=== PATIENT | male | born 1990 | race Caucasian/White ===

== ENCOUNTER 2017-04-27 10:28 | Inpatient (IN) ==
[2017-04-27 11:30] LABS: HEMATOCRIT 22.8 % (42.0-52.0); HEMOGLOBIN 7.5 g/dL (14.0-18.0); MANUAL DIFF NEEDED? YES; MCH 30.7 PG (27-31); MCHC 32.9 g/dL (33-37); MCV 93.4 FL (81-99); MPV 10.6 FL (7.4-10.4); PLT 108 X1000 (130-400); RBC 2.44 XMIL (4.7-6.1)
[2017-04-27 12:10] LABS: BANDS 17 % (0-1); EOS 3 % (1-10); LYMPHS 1 % (21-51)
[2017-04-27] MEDS ORDERED: CYTARABINE IV STA (13:26)
[2017-04-27] MEDS ORDERED: GLEEVEC 400 MG PO SCH (13:26)
[2017-04-27] MEDS ORDERED: HYDREA PO ONE (13:27)
--- NOTE | 2017-04-27 14:15 | Diag Imaging Result Doc PS360 ---
EXAM: CHEST-1 VIEW HISTORY: CML crisis TECHNIQUE: AP portable upright at 1410 COMMENT: There is no evidence of acute cardiac or pulmonary disease. No previous studies are available for comparison. IMPRESSION: No acute disease. Electronically signed by Herbert Hurst 04/27/2017 2:12 PM
[2017-04-27 14:46] LABS: URINE CULTURE NEEDED? NO; URINE SOURCE CLEAN CATCH
[2017-04-27 15:19] LABS: BILIRUBIN URINE NEGATIVE (NEGATIVE); BLOOD URINE NEGATIVE (NEGATIVE); COLOR YELLOW; GLUCOSE URINE NEGATIVE (NEGATIVE); LEUKOCYTES URINE NEGATIVE (NEGATIVE); NITRITE URINE NEGATIVE (NEGATIVE); PH URINE 5.5; PROTEIN URINE 50 mg/dL (NEGATIVE); SP GRAVITY URINE 1.016; TURBIDITY URINE HAZY (CLEAR); UROBILINOGEN URINE NORMAL (NORMAL)
[2017-04-27 15:20] LABS: URINE MICRO REVIEW NEEDED? YES
[2017-04-27 15:27] LABS: UR EPITHELIAL CELLS <10 /HPF (<10); URINE BACTERIA NEGATIVE /HPF; URINE RBC <10 /HPF (<10); URINE WBC <10 /HPF (<10)
[2017-04-27 15:29] LABS: URINE CASTS GRANULAR PRESENT
[2017-04-27 15:29] LABS: AGAP 12; ALBUMIN 4.4 g/dL (3.5-5.0); ALKALINE PHOSPHATASE 86 U/L (32-122); BUN 17 mg/dL (8-22); CALCIUM 8.5 mg/dL (8.8-10.2); CHLORIDE 102 mmol/L (98-107); COSMO 278; GOT 38 U/L (10-34); GPT 14 U/L (10-44); POTASSIUM 3.4 mmol/L (3.5-5.1); SODIUM 139 mmol/L (136-145); TCO2 25 mmol/L (25-35); TOTAL BILIRUBIN 0.67 mg/dL (0.20-1.00); TOTAL PROTEIN 8.2 g/dL (6.3-8.3)
[2017-04-27 15:47] LABS: INR 1.19; PROTIME 12.6 Seconds (9.2-11.7); PTT 36.1 Seconds (22.0-36.0)
[2017-04-27] MEDS ORDERED: NORCO-5 PO ONE (17:08)
[2017-04-27] MEDS ORDERED: NORCO-5 ONE (17:09)
[2017-04-27] MEDS ORDERED: ZOFRAN IV PRN ×2 (17:46→22:31)
[2017-04-27] MEDS ORDERED: NS 0 ML ONE (17:47)
[2017-04-27] MEDS ORDERED: NON-FORMULARY MED 1 EACH in NS 250 ML IV ONE (18:00)
--- NOTE | 2017-04-27 18:12 | HISTORY AND PHYSICAL ---
HISTORY: This is a 27-year-old who is from [place]. 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 He reports that really 2 weeks ago he started noticing fatigue and last week he has had frontal headaches. He noticed this last week as well lymph nodes on his chin, lower extremities, one on the right hip. He has a history of CML. He is followed at the [facility] in [place], I believe. He was diagnosed in 2011. Been in contact with his oncologist. They would like to admit and see if we can give him some treatment. He denies fever, chills, change in bowels. He can appreciate a little bit of splenomegaly, but the main thing has been fatigue, the lymph nodes in the lower extremity in his frontal headache. OTHER PAST MEDICAL HISTORY: Pretty unremarkable. He has had a right eye injury in the past. PAST SURGICAL HISTORY: No surgical history. SOCIAL HISTORY: Negative for alcohol or tobacco. No illicit drugs. FAMILY HISTORY: He comes from a large family. Family history of diabetes in his father. Otherwise pretty unremarkable. REVIEW OF SYSTEMS: Denies fever or chills.HEENT: He has a headache. No change in his vision reported or hearing acuity. Neck: Denies any stiffness. No history of thyroid disorder. Respiratory: No increased work of breathing or dyspnea. No orthopnea or paroxysmal nocturnal dyspnea. Cardiovascular: He denies any chest pain or palpitations. No complaints of squeezing- type chest discomfort. GI/: No change in his urination. No gross hematuria or dysuria. No change in bowels. PHYSICAL EXAMINATION: VITAL SIGNS: Temperature 97.8 degrees, pulse 86, respirations 20, blood pressure 103/56. EYES: Pupils are equal, round. LUNGS: Clear in all lung alves. CARDIOVASCULAR: Regular rhythm and rate without murmur or S3. ABDOMEN: Soft. He has splenomegaly. Spleen edge is below the umbilicus. EXTREMITIES: In his lower extremities he has 1-2 cm tender nodules that are consistent with lymph nodes. Do not appreciate adenopathy in the popliteal, in the femoral, supraclavicular, cervical or axillary. He has a lymph node below the deltoid he has had for a while. LAB: White count 523,000, his hematocrit is 22, his hemoglobin 7.5, MCV is 93, platelet count 108,000. Chemistry: Sodium 139, potassium 3.4, chloride 102, bicarb 25, BUN 17, creatinine 1.2, calcium 8.5, AST 38, ALT 14, alkaline phosphatase 86, albumin 4.4. ProTime is 12.6 with an INR 1.19, PTT was 36. Urinalysis unremarkable. Chest x-ray: No acute disease. NOTE: Dr. Mark in the ER had discussed with Dr. Cunningham at [facility] and Dr. Cunningham's cell phone number is [phone]. This is [facility] in [place]. We reported that he had presented with a white blood cell count of [id number]. In the past few years each time associated with poor compliance apparently with Gleevec regimen and none unassociated with blast crisis. Dr. Cunningham recommended admission here and we will get a differential count to reveal blast. He thinks he will probably get reasonable white blood cell count 3 to 5 days. We will treat him with hydroxyurea 5 g p.o. daily, cytarabine 1 g/m2 IV 1 dose and Gleevec 400 mg p.o. daily. Give him some IV fluids and check his counts in the morning. cc: Chintan Whitehead MD
[2017-04-27] MEDS ORDERED: NORCO-10 PO PRN (18:32)
[2017-04-27] MEDS: NS 1,000 ML IV SCH (18:45)
[2017-04-27] MEDS: NORCO-10 PO PRN (18:46)
[2017-04-27] MEDS ORDERED: MORPHINE IV ONE (22:10)
[2017-04-27] MEDS: COMPAZINE IV PRN (22:31)
[2017-04-28] MEDS: NORCO-10 PO PRN (00:08)
[2017-04-28] MEDS: MORPHINE IV PRN ×5 (05:28→23:41)
[2017-04-28 05:52] LABS: INR 1.41; PROTIME 15.1 Seconds (9.2-11.7); PTT 36.1 Seconds (22.0-36.0)
[2017-04-28 06:05] LABS: AGAP 14; ALBUMIN 3.9 g/dL (3.5-5.0); ALKALINE PHOSPHATASE 74 U/L (32-122); BUN 32 mg/dL (8-22); CALCIUM 7.9 mg/dL (8.8-10.2); CHLORIDE 103 mmol/L (98-107); COSMO 284; GOT 67 U/L (10-34); GPT 9 U/L (10-44); MAGNESIUM 2.5 mg/dL (1.5-2.7); POTASSIUM 4.2 mmol/L (3.5-5.1); SODIUM 139 mmol/L (136-145); TCO2 22 mmol/L (25-35); TOTAL PROTEIN 7.3 g/dL (6.3-8.3)
[2017-04-28] MEDS: NS 1,000 ML IV SCH (06:28)
[2017-04-28 06:34] LABS: HEMATOCRIT 21.7 % (42.0-52.0); MANUAL DIFF NEEDED? YES; MCH 29.7 PG (27-31); MCHC 32.3 g/dL (33-37); MCV 91.9 FL (81-99); MPV 10.1 FL (7.4-10.4); PLT 93 X1000 (130-400); RBC 2.36 XMIL (4.7-6.1)
--- NOTE | 2017-04-28 06:47 | EKG Report ---
Test Performed on : 04/27/2017 11:47:13 PM Test Reason : CHEST PAIN Blood Pressure : / mmHG Vent. Rate : 085 BPM Atrial Rate : 085 BPM P-R Int : 158 ms QRS Dur : 094 ms QT Int : 382 ms P-R-T Axes : 150 -24 148 degrees QTc Int : 454 ms Unusual P axis, possible ectopic atrial rhythm. Low voltage QRS Nonspecific T wave abnormality Abnormal ECG No previous ECGs available Confirmed by Fernando Loaiza MD ([id number]) on 04/30/2017 12:56:21 PM
[2017-04-28 07:34] LABS: BANDS 7 % (0-1); EOS 5 % (1-10); MONO 1 % (1-9); NRBC 2 % (0-0)
[2017-04-28] MEDS: LOVENOX SUBQ SCH (08:30)
[2017-04-28] MEDS: COMPAZINE IV PRN (08:31)
[2017-04-28] MEDS ORDERED: IMATINIB MESYLATE 400 MG PO SCH (09:00)
[2017-04-28] MEDS ORDERED: COMPAZINE ONE (09:18)
[2017-04-28] MEDS: PRILOSEC PO SCH (13:31)
[2017-04-28] MEDS: PATIENT'S OWN MED PO SCH (17:08)
--- NOTE | 2017-04-28 17:42 | PROGRESS NOTE ---
DATE: 04/28/2017 SUBJECTIVE: He is feeling he had a pretty rough night, maybe feeling a little better this afternoon. He has been able to get some food down. He still has pretty good headache, but feels a little stronger. PHYSICAL EXAMINATION: Vital signs: Temp 98 degrees, pulse 65, respirations 20, blood pressure 100/59. HEENT: Pupils are equal, round. Lungs: Clear in all lung alves. Cardiovascular: Regular rhythm and rate, without murmur or S3. Abdomen: Soft. Skin: Warm and dry. Genitourinary: Urine output 1400 mL. ASSESSMENT AND PLAN: Chronic myelocytic leukemia with lymphoblastic crisis. Has come down, dropped by 100,000 on hydroxyurea. Will give 500 mg hydroxyurea daily. The patient taking his own . We will check blood count again in the morning. cc: Chintan Whitehead MD
[2017-04-28] MEDS: HYDREA PO SCH (17:50)
[2017-04-29] MEDS: MORPHINE IV PRN ×6 (05:03→22:25)
[2017-04-29 06:29] LABS: HEMATOCRIT 22.5 % (42.0-52.0); HEMOGLOBIN 7.3 g/dL (14.0-18.0); MANUAL DIFF NEEDED? YES; MCH 29.9 PG (27-31); MCHC 32.4 g/dL (33-37); MCV 92.2 FL (81-99); MPV 11.6 FL (7.4-10.4); PLT 110 X1000 (130-400); RBC 2.44 XMIL (4.7-6.1)
[2017-04-29 06:43] LABS: AGAP 12; ALKALINE PHOSPHATASE 63 U/L (32-122); BUN 18 mg/dL (8-22); CALCIUM 8.3 mg/dL (8.8-10.2); CHLORIDE 102 mmol/L (98-107); COSMO 276; GOT 34 U/L (10-34); GPT 9 U/L (10-44); MAGNESIUM 2.4 mg/dL (1.5-2.7); SODIUM 138 mmol/L (136-145); TCO2 24 mmol/L (25-35); TOTAL BILIRUBIN 0.85 mg/dL (0.20-1.00); TOTAL PROTEIN 7.7 g/dL (6.3-8.3); URIC ACID 11.4 mg/dL (3.4-7.0)
[2017-04-29 07:01] LABS: BANDS 6 % (0-1); EOS 11 % (1-10); LYMPHS 7 % (21-51); MONO 1 % (1-9); NRBC 1 % (0-0)
[2017-04-29] MEDS: PRILOSEC PO SCH (08:41)
[2017-04-29] MEDS: LOVENOX SUBQ SCH ×2 (08:41→08:46)
[2017-04-29] MEDS: HYDREA PO SCH ×2 (08:46→18:37)
[2017-04-29] MEDS: PATIENT'S OWN MED PO SCH (08:47)
[2017-04-29] MEDS: TYLENOL PO PRN (11:59)
--- NOTE | 2017-04-29 15:38 | PROGRESS NOTE ---
DATE: 04/29/2017 SUBJECTIVE: He is feeling better. White count has come down to 350,000. I think he is supposed to take 5 g of hydroxyurea though instead of 500 mg a day. So, we will give him the 5 g. He will get a CBC again tomorrow. He is eating well. Still has the headache. The lymph nodes appear to be going down in his legs. OBJECTIVE: Lungs: Clear in all lung alves. Cardiovascular exam: Regular rhythm and rate without murmur or S3. Abdomen: Soft. Skin: Warm and dry. Vital Signs: Temperature 98.0 degrees, pulse 70, respirations 18, blood pressure 103/53. cc: Chintan Whitehead MD
[2017-04-30] MEDS: MORPHINE IV PRN ×8 (01:20→23:23)
[2017-04-30 06:33] LABS: HEMATOCRIT 22.6 % (42.0-52.0); HEMOGLOBIN 7.4 g/dL (14.0-18.0); MANUAL DIFF NEEDED? YES; MCHC 32.7 g/dL (33-37); MCV 91.5 FL (81-99); MPV 11.3 FL (7.4-10.4); PLT 106 X1000 (130-400); RBC 2.47 XMIL (4.7-6.1)
[2017-04-30 06:44] LABS: BANDS 12 % (0-1); EOS 4 % (1-10); MONO 8 % (1-9)
[2017-04-30] MEDS: PRILOSEC PO SCH (08:26)
[2017-04-30] MEDS: HYDREA PO SCH (08:27)
[2017-04-30] MEDS: LOVENOX SUBQ SCH (08:27)
[2017-04-30] MEDS: PATIENT'S OWN MED PO SCH (08:28)
--- NOTE | 2017-04-30 12:52 | PROGRESS NOTE ---
DATE: 04/30/2017 SUBJECTIVE: Patient states he is feeling better. Headache may be a little less intense. The nodules are down on his legs. His white blood cell count is down to 315,000, hematocrit 22, hemoglobin 7.4. OBJECTIVE: Vital Signs: On exam today, temp 97.5 degrees, pulse 67, respirations 20, blood pressure 99/64. HEENT: Pupils are equal, round. CVP less than 6 cm. Lungs: Clear in all lung alves. Cardiovascular exam: Regular rhythm and rate without murmur or S3. Abdomen: Soft. Skin: Warm and dry. LABS: White count 315,000, hemoglobin 7.4, hematocrit 22, platelet count 106,000. Sodium 138, potassium 4.0, chloride 102, bicarbonate was 24 hours. Magnesium was 2.4, creatinine 1.0. ASSESSMENT AND PLAN: Chronic myelocytic leukemia. Blast crisis. White count is going down. We will check his count at 4 o'clock again in the morning. he I think he is getting close where he feels comfortable about going home. He does not live in state. 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 cc: Chintan Whitehead MD
[2017-04-30 15:54] LABS: HEMATOCRIT 22.7 % (42.0-52.0); HEMOGLOBIN 7.3 g/dL (14.0-18.0); MANUAL DIFF NEEDED? YES; MCH 29.2 PG (27-31); MCHC 32.2 g/dL (33-37); MCV 90.8 FL (81-99); MPV 11.3 FL (7.4-10.4); PLT 116 X1000 (130-400)
[2017-04-30 16:12] LABS: EOS 9 % (1-10); LYMPHS 19 % (21-51); MONO 7 % (1-9)
[2017-04-30] MEDS: TYLENOL PO PRN (16:31)
[2017-05-01] MEDS: MORPHINE IV PRN ×7 (03:31→23:09)
[2017-05-01 07:45] LABS: HEMATOCRIT 22.6 % (42.0-52.0); HEMOGLOBIN 7.4 g/dL (14.0-18.0); MANUAL DIFF NEEDED? YES; MCH 29.7 PG (27-31); MCHC 32.7 g/dL (33-37); MCV 90.8 FL (81-99); MPV 11.8 FL (7.4-10.4); PLT 121 X1000 (130-400); RBC 2.49 XMIL (4.7-6.1)
[2017-05-01 08:00] LABS: BANDS 14 % (0-1); EOS 6 % (1-10)
[2017-05-01] MEDS: HYDREA PO SCH (09:21)
[2017-05-01] MEDS: LOVENOX SUBQ SCH (09:21)
[2017-05-01] MEDS: PATIENT'S OWN MED PO SCH (09:21)
[2017-05-01] MEDS: PRILOSEC PO SCH (09:21)
[2017-05-01] MEDS: TYLENOL PO PRN ×2 (12:15→20:35)
--- NOTE | 2017-05-01 14:32 | PROGRESS NOTE ---
DATE: 05/01/2017 SUBJECTIVE: He is feeling better. He had a pretty good headache yesterday and felt bad. Today a little better. OBJECTIVE: Vital signs: Temp 98.1 degrees, pulse 69, respirations 18, blood pressure 105/66. HEENT: Pupils are equal, round. Lungs: Clear in all lung alves. Cardiovascular: Regular rhythm and rate without murmur or S3. Abdomen: Soft. Skin: Warm and dry. LABORATORY: White count down to 244,000. His metamyelocytes are about 18%. Hematocrit is 22, hemoglobin 7.4, platelet count 121,000. ASSESSMENT AND PLAN: Chronic myelocytic leukemia, blast crisis. He is steadily going down on his counts. He is getting Hydrea 5000 mg daily. His headache is better. The soft tissue masses on his legs or lymph nodes have diminished greatly. So, maybe he can go home tomorrow. cc: Chintan Whitehead MD
[2017-05-01] MEDS ORDERED: FIORICET PO ONE (23:40)
[2017-05-02 06:07] LABS: HEMATOCRIT 23.1 % (42.0-52.0); HEMOGLOBIN 7.5 g/dL (14.0-18.0); MANUAL DIFF NEEDED? YES; MCH 29.3 PG (27-31); MCHC 32.5 g/dL (33-37); MCV 90.2 FL (81-99); MPV 11.2 FL (7.4-10.4); PLT 128 X1000 (130-400); RBC 2.56 XMIL (4.7-6.1)
[2017-05-02 06:20] LABS: AGAP 13; ALBUMIN 4.2 g/dL (3.5-5.0); ALKALINE PHOSPHATASE 58 U/L (32-122); BUN 19 mg/dL (8-22); CALCIUM 8.2 mg/dL (8.8-10.2); CHLORIDE 99 mmol/L (98-107); COSMO 273; GOT 14 U/L (10-34); GPT 8 U/L (10-44); MAGNESIUM 2.3 mg/dL (1.5-2.7); POTASSIUM 4.4 mmol/L (3.5-5.1); SODIUM 136 mmol/L (136-145); TCO2 24 mmol/L (25-35); TOTAL BILIRUBIN 0.79 mg/dL (0.20-1.00); TOTAL PROTEIN 7.3 g/dL (6.3-8.3)
[2017-05-02 07:11] LABS: BANDS 10 % (0-1); EOS 2 % (1-10); HYPOCHROM 1+; LYMPHS 2 % (21-51)
[2017-05-02] MEDS: MORPHINE IV PRN ×5 (09:54→23:23)
[2017-05-02] MEDS: HYDREA PO SCH (09:56)
[2017-05-02] MEDS: TYLENOL PO PRN (09:56)
[2017-05-02] MEDS: PRILOSEC PO SCH (09:57)
[2017-05-02] MEDS: LOVENOX SUBQ SCH (09:57)
[2017-05-02] MEDS: PATIENT'S OWN MED PO SCH (12:06)
[2017-05-02] MEDS: FIORICET PO PRN ×2 (12:23→21:03)
--- NOTE | 2017-05-02 15:50 | PROGRESS NOTE ---
DATE: 05/02/2017 SUBJECTIVE: He is feeling better. Still pretty a good headache. The Percocet seemed to help. He remains afebrile. OBJECTIVE: Vital signs: Temperature 97.9 degrees, pulse 70, respirations 16, blood pressure 99/66. Lungs: Are clear in all lung alves. Cardiovascular: Regular rhythm and rate without murmur or S3. Abdomen: Soft. Skin: Warm and dry. His nodules down on his shins and right upper thigh have almost resolved. LABORATORY: White count down to 176,000, hematocrit is 23, platelet count is 128,000. So doing good. We will check some more blood in the morning. ASSESSMENT AND PLAN: Chronic monocytic leukemia, blast crisis, improved. He will continue the hydroxyurea. He got a dose of cytarabine 1 g/m2. Of course, he admits that he continues on the Gleevec, that has not changed, 400 mg a day. We will give hydroxyurea 5 g a day or so on improvement. I will check CBC again and electrolytes in the morning, check uric acid level. Hopefully we can discharge him. He would like to get back to his home in [place]. I emphasized the need that he needs to follow up quickly with his oncologist/ve teacher because I think this was a blast crisis. cc: Chintan Whitehead MD
[2017-05-03] MEDS: MORPHINE IV PRN ×5 (03:57→21:22)
[2017-05-03 06:56] LABS: HEMATOCRIT 22.9 % (42.0-52.0); HEMOGLOBIN 7.3 g/dL (14.0-18.0); MANUAL DIFF NEEDED? YES; MCH 28.9 PG (27-31); MCHC 31.9 g/dL (33-37); MCV 90.5 FL (81-99); MPV 10.8 FL (7.4-10.4); PLT 130 X1000 (130-400); RBC 2.53 XMIL (4.7-6.1)
[2017-05-03 06:57] LABS: AGAP 13; ALBUMIN 4.2 g/dL (3.5-5.0); ALKALINE PHOSPHATASE 59 U/L (32-122); BUN 20 mg/dL (8-22); CALCIUM 8.3 mg/dL (8.8-10.2); CHLORIDE 100 mmol/L (98-107); COSMO 275; GOT 14 U/L (10-34); GPT 8 U/L (10-44); MAGNESIUM 2.3 mg/dL (1.5-2.7); POTASSIUM 4.1 mmol/L (3.5-5.1); SODIUM 137 mmol/L (136-145); TCO2 24 mmol/L (25-35); TOTAL BILIRUBIN 0.68 mg/dL (0.20-1.00); TOTAL PROTEIN 8.1 g/dL (6.3-8.3)
[2017-05-03 07:11] LABS: BANDS 22 % (0-1); EOS 6 % (1-10); HYPOCHROM 1+; LARGE PLATELETS 1+; LYMPHS 8 % (21-51)
[2017-05-03] MEDS: HYDREA PO SCH (08:36)
[2017-05-03] MEDS: LOVENOX SUBQ SCH (08:36)
[2017-05-03] MEDS: PRILOSEC PO SCH (08:39)
[2017-05-03] MEDS: PATIENT'S OWN MED PO SCH (08:39)
[2017-05-03] MEDS: FIORICET PO PRN ×2 (14:33→20:09)
--- NOTE | 2017-05-03 15:11 | PROGRESS NOTE ---
DATE: 05/03/2017 SUBJECTIVE: The patient states that he just does not feel well today. He states that he feels weak. OBJECTIVE: Vital Signs: Temperature 98.4 degrees, blood pressure 199/64, heart rate 75, respirations 12, O2 saturations 100% on room air. General: This is a young male lying in bed in no acute distress. Heart: S1, S2. Normal. Regular rate and rhythm. Lungs: Equal air entry bilaterally. No crackles, no rales. Abdomen: Positive bowel sounds. Soft, nontender, nondistended. Extremities: No edema. No cyanosis. No calf tenderness. Neurologic: The patient is alert and oriented x3. LABS: White blood cell count 111,000, hemoglobin 7.3, hematocrit 22, platelets 130,000. Sodium 137, potassium 4.1, chloride 100, CO2 24, BUN 20, creatinine 0.8, glucose 80, AST 14, ALT 8, calcium 8.3. ASSESSMENT AND PLAN: 1. Chronic myelogenous leukemia. Continue on Hydrea. We will continue to monitor the patient's counts closely. Dr. Oquendo has been consulted to follow along. Will monitor the patient closely for tumor lysis syndrome. 2. Deep vein thrombosis prophylaxis. Continue on Lovenox. 3. Anemia. The patient's hemoglobin is low but stable. Will monitor this closely. cc: Dianelys Ellison MD
--- NOTE | 2017-05-03 17:31 | CONSULTATION ---
DATE OF CONSULTATION: 05/03/2017 REASON FOR CONSULT: The patient has chronic myelogenous leukemia. 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 He has previously been on Sprycel and most recently on Gleevec over the last 9 months. He remains on 400 mg a day. He last saw his oncologist 3 months ago and his WBC had normalized. He has been noncompliant with keeping appointments as they have asked him to follow monthly. He began feeling unwell, weak and fatigued over the last week with increasing headaches. 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 He denies any obvious fever. He does state that he has had about a 20 pound weight loss in the last several weeks. Denies drenching night sweats. He does say that he has had some lymph nodes to lower extremities that have significantly decreased since being in the hospital once he was admitted. On admission his white count was found to be 523,000, platelet count was a 108,000. Hemoglobin was 7.5, hematocrit was 22. His chemistries were adequate. The ER physician put a call into his primary oncologist, who is doctor is Dr. Cunningham at [facility] and they recommended cytarabine 1 g/m2 IV x 1 which he received. He has had blast crises in the past at [facility] where he required admission until his WBC dropped below 40,000 to 50,000. He has been started on hydroxyurea 5 g p.o. daily. His white count continues to trend down. White count today is 111, hemoglobin 7.3, hematocrit 22, platelet count is 130,000. His chemistries remain essentially normal and he does; however, have an elevated uric acid. Uric acid is 9.7, it is down from 11.4. REVIEW OF SYSTEMS: Negative unless indicated in the HPI. PAST MEDICAL HISTORY: Chronic myelogenous leukemia. PAST SURGICAL HISTORY: There is none. SOCIAL HISTORY: Patient denies alcohol, tobacco, or illicit drugs. FAMILY HISTORY: Unremarkable. PHYSICAL EXAMINATION: Vital Signs: Stable. Constitutional: A male in no acute distress. HEENT: Head is normocephalic, atraumatic. Cardiovascular: S1-S2 audible auscultation without heaves, lifts, thrills. Pulmonary: Breath sounds clear to auscultation. Normal respiratory effort. Abdomen: Soft. He has splenomegaly edge below the umbilicus. Positive bowel sounds. Skin: No petechiae, ecchymosis, or rash. Lymphatics: No palpable enlarged lymph nodes. Neurologic: Alert and oriented x 3. Psychiatric: Appropriate to the situation. DIAGNOSTIC DATA: White blood cell count [id number], hemoglobin 7.3, hematocrit 22, platelets 130,000. Sodium 137, potassium 4.1, BUN 28, creatinine 0.8, calcium is 8.3. ASSESSMENT AND PLAN: 1. Chronic myelogenous leukemia. He follows at [place]. He has been on Sprycel in the past and is most recently on Gleevec. Continue Gleevec 400 mg a day. Also continue Hydrea. He received cytarabine 1 g/ m2 IV x 1 upon admission after consultation with his oncologist in [place]. His white count has been coming down. We will monitor closely. Check CBC and CMP daily. The goal is a white count of around 40,000 to 50,000 and hopefully he will be able to discharge at that time if otherwise stable. 2. Tumor lysis prophylaxis. Continue IV fluids. His uric acid has come down. We will monitor. May need to give allopurinol. 3. Deep vein thrombosis prophylaxis. Patient is already on Lovenox. 4. Anemia, stable. Patient is asymptomatic. We will monitor closely at this time. Dictated by NEMO Quintana for Ang Oquendo MD cc: NEMO Quintana MD [facility]
[2017-05-03] MEDS: NS 1,000 ML IV SCH (17:56)
[2017-05-04] MEDS: MORPHINE IV PRN ×6 (01:55→21:06)
[2017-05-04] MEDS: NS 1,000 ML IV SCH ×3 (04:46→21:10)
[2017-05-04 06:52] LABS: AGAP 10; ALBUMIN 4.2 g/dL (3.5-5.0); ALKALINE PHOSPHATASE 57 U/L (32-122); BUN 18 mg/dL (8-22); CALCIUM 8.4 mg/dL (8.8-10.2); CHLORIDE 99 mmol/L (98-107); COSMO 271; GOT 11 U/L (10-34); GPT 6 U/L (10-44); POTASSIUM 4.1 mmol/L (3.5-5.1); SODIUM 135 mmol/L (136-145); TCO2 26 mmol/L (25-35); TOTAL BILIRUBIN 0.62 mg/dL (0.20-1.00); TOTAL PROTEIN 8.2 g/dL (6.3-8.3); URIC ACID 7.4 mg/dL (3.4-7.0)
[2017-05-04 07:30] LABS: HEMATOCRIT 22.7 % (42.0-52.0); HEMOGLOBIN 7.2 g/dL (14.0-18.0); MANUAL DIFF NEEDED? YES; MCH 28.7 PG (27-31); MCHC 31.7 g/dL (33-37); MCV 90.4 FL (81-99); MPV 11.6 FL (7.4-10.4); PLT 120 X1000 (130-400); RBC 2.51 XMIL (4.7-6.1)
[2017-05-04 07:41] LABS: BANDS 7 % (0-1); HYPOCHROM OCCASIONAL; LYMPHS 4 % (21-51); MONO 3 % (1-9); POLYCHROM OCCASIONAL
[2017-05-04] MEDS: LOVENOX SUBQ SCH (08:45)
[2017-05-04] MEDS: PRILOSEC PO SCH (08:49)
[2017-05-04] MEDS: HYDREA PO SCH (08:50)
--- NOTE | 2017-05-04 16:03 | PROGRESS NOTE ---
DATE: 05/04/2017 SUBJECTIVE: The patient is resting comfortably in bed. He states that he does not feel that great today. No acute events noted overnight. OBJECTIVE: Vital Signs: Temperature 98.7 degrees, blood pressure 102/54, heart rate 70, respirations 20, O2 saturations 99% on room air. General: This is a young male , lying in bed, in no acute distress. Heart: S1, S2 normal. Regular rate and rhythm. Lungs: Clear to auscultation bilaterally. No wheezes, no rales. No rhonchi. Abdomen: Positive bowel sounds. Soft, nontender, nondistended. Extremities: No edema. No cyanosis. No calf tenderness. Neurologic: The patient is alert and oriented x4. LABORATORY DATA: White blood cell count 70, hemoglobin 7.2, hematocrit 22, platelets 128,000. Sodium 135, potassium 4.1, BUN 19, creatinine 0.7 glucose 32. ASSESSMENT: 1. Chronic myelogenous leukemia. The patient's white blood cell count continues to improve. Continue on the current regimen. 2. Anemia. The patient's hemoglobin and hematocrit are low but stable. We will continue to monitor this closely. 3. Deep vein thrombosis prophylaxis. Continue on Lovenox. cc: Dianelys Ellison MD MTDD
[2017-05-04] MEDS: PATIENT'S OWN MED PO SCH (17:40)
[2017-05-05] MEDS: MORPHINE IV PRN ×7 (00:42→23:09)
[2017-05-05 06:55] LABS: HEMATOCRIT 21.8 % (42.0-52.0); HEMOGLOBIN 6.9 g/dL (14.0-18.0); MANUAL DIFF NEEDED? YES; MCH 28.9 PG (27-31); MCHC 31.7 g/dL (33-37); MCV 91.2 FL (81-99); MPV 11.6 FL (7.4-10.4); PLT 107 X1000 (130-400); RBC 2.39 XMIL (4.7-6.1)
[2017-05-05 07:26] LABS: AGAP 10; ALBUMIN 3.9 g/dL (3.5-5.0); ALKALINE PHOSPHATASE 53 U/L (32-122); BUN 14 mg/dL (8-22); CALCIUM 8.2 mg/dL (8.8-10.2); CHLORIDE 103 mmol/L (98-107); COSMO 277; GOT 10 U/L (10-34); GPT 5 U/L (10-44); POTASSIUM 4.3 mmol/L (3.5-5.1); SODIUM 139 mmol/L (136-145); TCO2 26 mmol/L (25-35); TOTAL BILIRUBIN 0.66 mg/dL (0.20-1.00); TOTAL PROTEIN 7.8 g/dL (6.3-8.3); URIC ACID 6.4 mg/dL (3.4-7.0)
[2017-05-05 07:39] LABS: BANDS 2 % (0-1); BASO 1 % (0-1); EOS 5 % (1-10); LYMPHS 4 % (21-51); MONO 2 % (1-9)
[2017-05-05] MEDS: LOVENOX SUBQ SCH (08:05)
[2017-05-05] MEDS ORDERED: HYDREA PO SCH (08:06)
[2017-05-05] MEDS ORDERED: NS 0 ML ONE (10:07)
[2017-05-05] MEDS: PRILOSEC PO SCH (10:31)
[2017-05-05] MEDS: PATIENT'S OWN MED PO SCH (10:32)
[2017-05-05] MEDS: MIRALAX PO SCH (10:32)
--- NOTE | 2017-05-05 13:22 | PROGRESS NOTE ---
DATE: 05/05/2017 SUBJECTIVE: The patient is resting comfortably in bed. He states that he feels okay. No acute events noted overnight. OBJECTIVE: Vital Signs: Temperature 97 degrees, blood pressure 105/58, heart rate 76, respirations 14, O2 saturation is 100% on room air. General: This is a young male, lying in bed, in no acute distress. Heart: S1, S2. Normal. Regular rate and rhythm. Lungs: Clear to auscultation bilaterally. No wheezing. No rales. No rhonchi. Abdomen: Positive bowel sounds. Soft, nontender, nondistended. Extremities: No edema. No cyanosis. No calf tenderness. Neuro: Patient is alert and oriented x3. LABS: White blood cell count 41.9, hemoglobin 6.9, hematocrit 21.8, platelets 107,000. Sodium 139, potassium 4.3, chloride 103, CO2 26, BUN 14, creatinine 0.7, glucose 80. ASSESSMENT AND PLAN: 1. Chronic myelogenous leukemia. The patient's white blood cell count continues to improve. I have discussed the case with Dr. Cunningham at [facility] in [place] and he stated that we could discontinue the hydroxyurea today after he receives his dose scheduled. Likely the patient should be stable for discharge home tomorrow. 2. Anemia. The patient will be transfused with 2 units of packed red blood cells today. 3. Thrombocytopenia. Continue to monitor this closely. 4. Disposition. The patient will likely be stable for discharge home tomorrow. cc: Dianelys Ellison MD
[2017-05-06] MEDS: MORPHINE IV PRN ×6 (04:38→23:23)
[2017-05-06 06:50] LABS: HEMOGLOBIN 8.3 g/dL (14.0-18.0); MANUAL DIFF NEEDED? YES; MCH 29.3 PG (27-31); MCHC 31.9 g/dL (33-37); MCV 91.9 FL (81-99); MPV 11.4 FL (7.4-10.4); PLT 118 X1000 (130-400); RBC 2.83 XMIL (4.7-6.1)
[2017-05-06 07:16] LABS: AGAP 10; ALKALINE PHOSPHATASE 55 U/L (32-122); BUN 12 mg/dL (8-22); CALCIUM 8.3 mg/dL (8.8-10.2); CHLORIDE 103 mmol/L (98-107); COSMO 276; GOT 12 U/L (10-34); GPT 6 U/L (10-44); POTASSIUM 4.2 mmol/L (3.5-5.1); SODIUM 139 mmol/L (136-145); TCO2 26 mmol/L (25-35); TOTAL BILIRUBIN 0.58 mg/dL (0.20-1.00); TOTAL PROTEIN 7.5 g/dL (6.3-8.3); URIC ACID 6.8 mg/dL (3.4-7.0)
[2017-05-06] MEDS: LOVENOX SUBQ SCH (07:28)
[2017-05-06] MEDS: PRILOSEC PO SCH ×2 (07:29→10:45)
[2017-05-06] MEDS: PATIENT'S OWN MED PO SCH ×2 (07:29→10:45)
[2017-05-06 07:56] LABS: LYMPHS 8 % (21-51); NRBC 1 % (0-0)
[2017-05-06] MEDS: MIRALAX PO SCH (10:45)
[2017-05-06] MEDS: FIORICET PO PRN (14:09)
--- NOTE | 2017-05-06 17:11 | PROGRESS NOTE ---
DATE: 05/06/2017 SUBJECTIVE: The patient is resting comfortably in bed. No acute events noted overnight. He is afebrile. OBJECTIVE: Vital Signs: Temperature 98.3 degrees, blood pressure 94/60, heart rate 66, respirations 19, O2 saturations 99% on room air. General: This is a young male , lying in bed, in no acute distress. Heart: S1, S2 normal. Regular rate and rhythm. Lungs: Clear to auscultation bilaterally. No wheezing. No rales. No rhonchi. Abdomen: Positive bowel sounds. Soft, nontender, nondistended. Extremities: No edema. No cyanosis. No calf tenderness. Neurologic: The patient is alert and oriented x4. No focal neurologic deficits noted. Cranial nerves 2 through 12 intact. LABS: White blood cell count 36, hemoglobin 8.3, hematocrit 26, platelets 118, 000. Sodium 139, BUN 12, creatinine 0.7, glucose 79. AST 12, ALT 6, albumin 4. ASSESSMENT AND PLAN: 1.CML. The patient's white count continues to slowly improve. Continue on the current regimen. The patient's hydroxyurea was discontinued yesterday. 2. Anemia. Improved status post 2 units of packed red blood cells yesterday. 3. Thrombocytopenia. Stable. 4. Disposition. We will likely discharge the patient home on Tuesday. cc: Dianelys Ellison MD MTDD
[2017-05-07] MEDS: MORPHINE IV PRN ×6 (02:58→23:51)
[2017-05-07 06:53] LABS: HEMATOCRIT 28.4 % (42.0-52.0); HEMOGLOBIN 8.9 g/dL (14.0-18.0); MANUAL DIFF NEEDED? YES; MCH 29.3 PG (27-31); MCHC 31.3 g/dL (33-37); MCV 93.4 FL (81-99); MPV 11.5 FL (7.4-10.4); PLT 154 X1000 (130-400); RBC 3.04 XMIL (4.7-6.1)
[2017-05-07 07:17] LABS: AGAP 11; BUN 15 mg/dL (8-22); CALCIUM 8.6 mg/dL (8.8-10.2); CHLORIDE 102 mmol/L (98-107); COSMO 279; POTASSIUM 4.5 mmol/L (3.5-5.1); SODIUM 140 mmol/L (136-145); TCO2 27 mmol/L (25-35)
[2017-05-07 07:23] LABS: EOS 6 % (1-10); LYMPHS 7 % (21-51); MONO 2 % (1-9); NRBC 4 % (0-0)
[2017-05-07] MEDS: LOVENOX SUBQ SCH (08:03)
[2017-05-07] MEDS: MIRALAX PO SCH (08:04)
[2017-05-07] MEDS: PATIENT'S OWN MED PO SCH (09:24)
[2017-05-07] MEDS: PRILOSEC PO SCH (09:24)
[2017-05-08 06:47] LABS: AGAP 12; BUN 16 mg/dL (8-22); CALCIUM 8.6 mg/dL (8.8-10.2); CHLORIDE 102 mmol/L (98-107); COSMO 278; POTASSIUM 4.3 mmol/L (3.5-5.1); SODIUM 139 mmol/L (136-145); TCO2 25 mmol/L (25-35)
[2017-05-08 07:12] LABS: HEMATOCRIT 30.3 % (42.0-52.0); HEMOGLOBIN 9.4 g/dL (14.0-18.0); MANUAL DIFF NEEDED? YES; MCH 29.6 PG (27-31); MCV 95.3 FL (81-99); PLT 195 X1000 (130-400); RBC 3.18 XMIL (4.7-6.1)
[2017-05-08 07:50] LABS: BANDS 4 % (0-1); EOS 8 % (1-10); LYMPHS 12 % (21-51); MONO 10 % (1-9)
[2017-05-08] MEDS: PRILOSEC PO SCH (09:05)
[2017-05-08] MEDS: LOVENOX SUBQ SCH (09:05)
[2017-05-08] MEDS: PATIENT'S OWN MED PO SCH (09:06)
[2017-05-08] MEDS: MIRALAX PO SCH (09:06)
[2017-05-08] MEDS: MORPHINE IV PRN ×5 (09:12→21:04)
--- NOTE | 2017-05-08 15:13 | PROGRESS NOTE ---
DATE: 05/08/2017 SUBJECTIVE: The patient is resting comfortable in bed. He has no complaints. OBJECTIVE: Vital Signs: Temperature 98 degrees, blood pressure 108/64, heart rate 54, respirations 18, O2 saturations 100% on room air. General: This is a young male, lying in bed, in no acute distress. Heart: S1, S2, normal, bradycardic. Lungs: Equal air entry bilaterally. No crackles, no rales. Abdomen: Positive bowel sounds. Soft, nontender, nondistended. Extremities: No edema. No cyanosis. Neurologic: The patient is alert and oriented x3. LABORATORY STUDIES: White blood cell count 13, hemoglobin 9.4, hematocrit 30, platelets 195,000. Potassium 4.3, BUN 16, creatinine 0.8, glucose 90. ASSESSMENT AND PLAN: 1. Chronic myeloid leukemia. The patient's WBC count is 13 today. Continue on Gleevec. 2. Anemia. Stable. 3. Disposition. The patient will be discharged home tomorrow. cc: Dianelys Ellison MD
[2017-05-09] MEDS: MORPHINE IV PRN ×3 (00:01→06:32)
--- NOTE | 2017-05-09 03:51 | PROGRESS NOTE ---
DATE: 05/07/2017 SUBJECTIVE: The patient is resting comfortably in bed. He has no complaints. OBJECTIVE: Vital Signs: Temperature 97.9 degrees, blood pressure 105/66, heart rate 65, respirations 18, O2 saturations 100% on room air. General: This is a young male lying in bed in no acute distress. Heart: S1, S2. Normal. Regular rate and rhythm. Lungs: Clear to auscultation bilaterally. No wheezes, no rales. No rhonchi. Abdomen: Positive bowel sounds. Soft, nontender, nondistended. Extremities: No edema. No cyanosis. No calf tenderness. Neuro: The patient is alert and oriented x3. LABS: White blood cell count 22, hemoglobin 8.9, hematocrit 28, platelets 154,000. ASSESSMENT AND PLAN: 1. Chronic myelogenous leukemia. The patient's white blood cell count continues to improve. Continue on Gleevec. 2. Anemia. Stable. 3. Thrombocytopenia. Improved. 4. Disposition. The patient will be stable for discharge on Tuesday. cc: Dianelys Ellison MD
[2017-05-09 07:22] LABS: HEMATOCRIT 32.4 % (42.0-52.0); HEMOGLOBIN 10.2 g/dL (14.0-18.0); MANUAL DIFF NEEDED? YES; MCH 30.4 PG (27-31); MCHC 31.5 g/dL (33-37); MCV 96.7 FL (81-99); MPV 10.9 FL (7.4-10.4); PLT 251 X1000 (130-400); RBC 3.35 XMIL (4.7-6.1)
[2017-05-09 07:37] VITALS: BP 98/61
[2017-05-09 07:40] LABS: BANDS 4 % (0-1); MONO 2 % (1-9); NRBC 1 % (0-0)
[2017-05-09 07:41] LABS: LYMPHS 24 % (21-51); METAMYELOCYTES 1 %
[2017-05-09 07:44] LABS: AGAP 10; BUN 14 mg/dL (8-22); CALCIUM 8.4 mg/dL (8.8-10.2); CHLORIDE 102 mmol/L (98-107); COSMO 277; POTASSIUM 4.4 mmol/L (3.5-5.1); SODIUM 139 mmol/L (136-145); TCO2 27 mmol/L (25-35)
[2017-05-09] MEDS: PATIENT'S OWN MED PO SCH (09:34)
[2017-05-09] MEDS: PRILOSEC PO SCH (09:34)
[2017-05-09] MEDS: LOVENOX SUBQ SCH (09:35)
[2017-05-09] MEDS: MIRALAX PO SCH (09:35)
--- NOTE | 2017-05-12 11:04 | PROVIDER DOCUMENTATION ---
This chart was entered by Samir Tang Scribe, acting as scribe for Socrates Mark MD. HPI-General Adult - General Chief Complaint: General Adult Stated Complaint: HEADACHE/FATIGUE/GENERALIZED PAIN Time Seen by Provider: 04/27/17 10:40 Source: patient Allergies/Adverse Reactions: Patient Allergies Allergy/AdvReac Type Severity Reaction Status Date / Time No Known Allergies Allergy Verified 04/27/17 10:53 Home Medications: Home Medication List Medication Instructions Recorded Confirmed Last Taken Type Imatinib Mesylate [Gleevec] 400 mg PO DAILY 04/27/17 04/27/17 04/26/17 History Tramadol [Ultram] 50 mg PO Q6H PRN PRN #30 tablet 05/08/17 Unknown Rx - History of Present Illness -Gen Adult Nature of Presenting Problems: Patient is a 27 yo M that comes in with fatigue, headache, and areas of swelling to bilateral lower legs x 1 week. patient has CML, being followed at [facility]. he denies fever/chills, cough, or n/v/d. Patient feels is unable to do the strenuous part of his job due to feeling run down. Location of Pain/Injury: reports: generalized Quality of Pain: reports: aching Severity: reports: moderate Onset/Duration: reports: gradual, 1 week ago Timing: reports: still present, constant Context/Activities at Onset: reports: none Modifying Factors: improves with: nothing Associated Symptoms: reports: fatigue, headaches, malaise. denies: back/neck pain, chest pain, constipation, cough, diaphoresis, diarrhea, dizziness, EENT symptoms, fever/chills, genitourinary problems, nausea, vomiting Similar Symptoms Previously?: No Recently seen or treated by another doctor?: No Review of Systems - Adult - REVIEW OF SYSTEMS - ADULT Constitutional: reports: fatique. denies: chills, fever Eyes: denies: decreased vision, blurred vision, double vision Ears, Nose, Mouth & Throat: denies: ear pain, nose pain, throat pain, throat swelling Cardiovascular: denies: chest pain, palpitations Respiratory: denies: cough, shortness of breath, wheezing Gastrointestinal: denies: abdominal pain, nausea, vomiting Genitourinary: reports: no symptoms reported Musculoskeletal: reports: no symptoms reported Integumentary: reports: no symptoms reported Neurological: reports: headache/migraines. denies: dizziness/vertigo, numbness , syncope Psychiatric: reports: no symptoms reported Endocrine: reports: no symptoms reported Hematologic/Lymphatic: reports: no symptoms reported Allergic/Immunologic: reports: no symptoms reported All Other Systems: Reviewed and Negative Past History - Adult - PAST MEDICAL HISTORY-ADULT Review of Records: reports: Old Records Reviewed, Nursing Assessment Review, Medications Reviewed Endocrine/Immune: reports: Leukemia (CML) - PRIOR SURGERIES/PROCEDURES Surgical/Procedure History: reports: none - IMMUNIZATION STATUS Childhood Immunizations: See Nurse Assessment Flu Vaccine: See Nurse Assessment - FAMILY HISTORY Family History: reviewed, not pertinent - SOCIAL HISTORY Smoking: non-smoker Alcohol Use Frequency: occasionally Living Situation: family Physical Exam-General - PHYSICAL EXAM-ADULT Initial Vital Signs Reviewed: Yes - CONSTITUTIONAL General Appearance: alert, no apparent distress - EYES Eyes: PERRL/EOMI, pink conjunctivae - HEAD, EARS, NOSE, MOUTH & THROAT HENMT: normocephalic/atraumatic, moist mucous membranes, normal ENT inspection - NECK Neck: non-tender, full range of motion, normal inspection - RESPIRATORY Respiratory: lungs clear, normal breath sounds, no respiratory distress, no accessory muscle use - CARDIOVASCULAR Cardiovascular: regular rate, rhythm, no edema, no murmur - GASTROINTESTINAL (ABDOMEN) Abdominal Exam: normal bowel sounds, non tender, soft, no organomegaly, no pulsatile mass - MUSCULOSKELETAL Extremity: normal range of motion, normal capillary refill, pelvis stable - SKIN Integumentary: warm/dry, other (small areas on bilateral legs) - NEUROLOGIC Neurologic: master mechanic II-XII nml as tested, no motor/sensory deficits - PSYCHIATRIC Psych/Mental Status: normal mood/affect, normal thought content, normal thought process, oriented x 3 Progress - PLAN OF CARE/RESULTS Progress/Plan/Lab Results: Vital Signs - 8 hr 04/27/17 10:33 Temperature 97.6 F Pulse Rate 77 Respiratory Rate 16 Blood Pressure 121/78 O2 Sat by Pulse Oximetry 100 Orders Category Date Time Status CBC WITH DIFF [HEME] Stat Lab 04/27/17 10:52 Uncollected left number with with [facility] to return call. patient reports that his last white count was 6000, he is ok if he needs to stay here for treatment My call to the patient's oncologist of record, Dr. Tomas Cunningham [ cell phone: [phone] ] @ [facility] ([place]) was returned shortly after 13:00- Dr. Cunningham noted that the patient had presented with wbc counts this high on 2-3 occasions in the past few years, each time associated with poor- or non- compliance with his Gleevec regimen (and none associated with blast crises). Dr. Cunningham recommended admission (here) and noted that (especially should his differential count did not reveal blasts) he would likely achieve return to reasonable wbc counts within 3-5 days with the following recommended regimen: 1. Hydroxyurea 5 gm po daily; 2. Cytarabine, 1gm/m2 IV once only (ordered 2 gm based on pt' calculated BSA of 1.95m2); and 3. Gleevec, 400 mg p.o. QD. I have ordered all above. I will consult Hospitalist for admission, and presumptive Hem-Onc consultation. Result Diagrams: 05/09/17 06:15 05/09/17 06:15 - CONSULTS/PCP/HOSPITALIST Notification #1 *Consult/PCP/Hospitalist*: Neha CHESTER with Hospitalist Time Discussed: 13:46 Reason/Comments: will accept post lab Consult Disposition: Admit Departure - Departure Date of Disposition Decision: 04/27/17 Time of Disposition Decision: 13:54 DIAGNOSIS: CML (chronic myelocytic leukemia) Disposition: ADMITTED INPATIENT 09 Certified Medical Emergency: Emergent Condition: Stable - Critical Care Note This patient required my direct & personal management of CC.: No Attestation - Physician/ KEN Attestation The physician spent face to face time with patient:: Yes Advanced Practice Provider documentation review:: Supervising physician onsite and consulted in the evaluation and care of this patient. The physician did have a face to face encounter with the patient. This chart was documented by the indicated scribe, (Samir Tang, Scribe) and accurately reflects the services I performed and decisions made by me, Socrates Mark MD, as attested by the provider's signature.
== END 2017-05-09 10:02 | disposition home or self-care (01) ==
LOC: ED 10:28 → SUATTDRO 18:57 → EDIPHOLD 18:57 → 3N 04-28 12:33
PROVIDERS: ATTEND Internal Medicine